=== PATIENT | female | born 1985 | race Caucasian/White ===

== ENCOUNTER 2019-05-13 13:04 | Emergency (ER) | payer MEDICAID ==
[~2019-05-13] VITALS: Ht 157.5 cm; Wt 64.5 kg
[2019-05-13 17:34] VITALS: BP 124/62
== END 2019-05-13 17:36 | disposition home or self-care (01) ==
LOC: ED 17:30
DX: N76.0 Acute vaginitis (principal)
CPT/HCPCS: 36415; 80048; 81001; 82040; 84703; 85025; 87086; 87210; 87491; 87591; 87808; 96372; 99283; J0696